=== PATIENT | female | born 1945 | race Caucasian/White ===

== ENCOUNTER → 2019-12-20 09:12 | Outpatient (CLI) | payer MEDICARE, SELFPAY ==
--- NOTE | ~2019-12-20 | XR_ITS ---
EXAMINATION: XR_CERV2-3V_CR DATE: 12/20/2019 09:38 INDICATION: Post cervical fusion. TECHNIQUE: 3 views of cervical spine were obtained. COMPARISON: Cervical spine radiographs 10/12/2017 FINDINGS: There is 11 degrees levoscoliosis of cervicothoracic spine. There are changes of anterior f usion procedure from C4 to C7 with discectomies, interbody devices, and anterior plate and screws. Ve rtebral body heights are normal. Intervertebral disc heights are normal. There is multilevel facet jeanna int osteoarthritis, severe on the right at C3-C4. No central canal stenosis or prevertebral soft tiss ue swelling. IMPRESSION: 1. Stable anterior fusion procedure from C4 to C7. 2. Cervical facet joint osteoarthritis. 3. Cervicothoracic levoscoliosis. Reviewed, dictated and finalized at location A.
== END ==
PROVIDERS: PCP Internal Medicine
DX: Z98.1 Arthrodesis status (principal); M85.89 Other specified disorders of bone density and structure, multiple sites; M41.83 Other forms of scoliosis, cervicothoracic region
CPT/HCPCS: 72040

== ENCOUNTER → 2020-01-20 12:41 | Outpatient (CLI) | payer MEDICARE, SELFPAY ==
--- NOTE | ~2020-01-20 | XR_ITS ---
XR lumbar spine min 4V DATE: 01/20/2020 13:04 INDICATION: Low back pain TECHNIQUE: Standing AP, lateral, flexion and extension lateral views COMPARISON: 12/28/2013 MRI lumbar spine FINDINGS: There is mild dextroscoliosis of the thoracolumbar spine. There is osteopenia. There is postoperative change, including laminectomy and posterior and interbody spinal fusion at L3- L5. There is severe degenerative disc disease including loss of interspace, eburnation and spurring at L1 -2 and L2-3, with retrolisthesis at both levels. There is severe degenerative disc disease at L5-S1. The sacroiliac joints are normal. Right upper quadrant surgical clips. IMPRESSION: Status post posterior and interbody spinal fusion at L3-5, laminectomy Severe degenerative disc disease, retrolisthesis at L1-2, L2-3 Severe degenerative disc disease at L5-S1 Reviewed, dictated and finalized at location A.
--- NOTE | ~2020-01-20 | CT_ITS ---
EXAMINATION: CT lumbar spine wo con EXAM DATE: 01/20/2020 13:04 INDICATION: Lumbar surgery 10 years ago. Lumbar spondylosis. TECHNIQUE: Spiral CT of the lumbar spine was performed without contrast. Axial, coronal and sagittal images were reviewed. The dose-length product (DLP) for this examination was 831.45 mGy-cm. The e xposure was tailored according to patient size (auto mA exposure control), and iterative reconstructi on (ASIR) was used as additional dose reduction technique. Correlation is made to MR lumbar spine fro 12/27/2013. FINDINGS: Posterior and interbody fusions L3-L5. No lucency surrounding the pedicular screws. L3 lami notomies, L4 laminectomies, L5 laminotomies There is 4 mm retrolisthesis L2 on L3 and L3 on L4 with s evere disc disease at these 2 levels. Mild loss of the L1-L3 vertebral body heights. Sclerosis in the se vertebral bodies likely degenerative. No sacral insufficiency fracture. Mild to moderate scattered aortic arteriosclerotic disease. Some sigmoid diverticulosis. Level by level evaluation: T12-L1: Disc does not extend beyond the endplate margin. Facet arthropathy: None. Neural foraminal stenosis: No stenosis. Central canal stenosis: No stenosis. L1-L2: There is a moderate diffuse disc bulge. Facet arthropathy: Mild to moderate. Neural foraminal stenosis: Moderate left, mild to moderate right. Central canal stenosis: Mild to moderate. L2-L3: There is a moderate diffuse disc bulge. Facet arthropathy: Moderate bilateral. Neural foraminal stenosis: Moderate bilateral, right greater than left. Central canal stenosis: Mild to moderate, particularly right lateral recess. L3-L4: This level is fused. Facet arthropathy: Moderate but fused. Neural foraminal stenosis: No stenosis. Central canal stenosis: No stenosis. Posterior decompression L4-L5: This level is fused. Facet arthropathy: Fused. Neural foraminal stenosis: No stenosis. Central canal stenosis: No stenosis. Posterior decompression. L5-S1: There is a mild to moderate diffuse disc bulge. Facet arthropathy: Mild to moderate. Neural foraminal stenosis: Mild to moderate bilateral. Central canal stenosis: No stenosis. Correlating with prior lumbar spine MR, there was advanced disc disease at L2-3 with compression frac tures at that time. This has progressed and there is been interval development of advanced disc disea se at L1-2 as well. IMPRESSION: 1. Advanced disc disease L2-3 and L1-2. 2. Intact fusion, posterior laminotomies and laminectomies L3-5. Reviewed, dictated and finalized at location A.
== END ==
PROVIDERS: Visit Provider Neurological Surgery
DX: M51.36 Other intervertebral disc degeneration, lumbar region (principal); Z98.1 Arthrodesis status; M51.37 Other intervertebral disc degeneration, lumbosacral region
CPT/HCPCS: 72110; 72131

== ENCOUNTER → 2020-07-19 09:32 | Outpatient (CLI) | payer MEDICARE, SELFPAY ==
--- NOTE | ~2020-07-19 | XR_ITS ---
XR hip BI wo pelvis DATE: 07/19/2020 10:18 INDICATION: Hip pain. Osteoarthritis. TECHNIQUE: AP and lateral views of each hip COMPARISON: 03/05/2009 left hip FINDINGS: No fracture or dislocation, avascular necrosis or bone destruction of either hip. Hip joint spaces are symmetric and relatively preserved. The pubic symphysis and sacroiliac joints are intact. Pedicle screws and rods are partially visualized in the lower lumbar area. IMPRESSION: No significant abnormality of the hips Reviewed, dictated and finalized at location A. SEWER
== END ==
PROVIDERS: PCP Internal Medicine; Visit Provider Anesthesiology
DX: M16.0 Bilateral primary osteoarthritis of hip (principal)
CPT/HCPCS: 73521

== ENCOUNTER 2020-08-03 09:55 | Outpatient (CLI) | payer MEDICARE, SELFPAY ==
--- NOTE | 2020-08-06 16:43 | WPDPFTINT ---
PFT Interpretation This is a pulmonary function test with pre and post-bronchodilator spirometry, plethysmography and diffusing capacity. The test was performed and results interpreted in accordance with the 2019 and 2005 ATS/ERS Task Force guidelines respectively using the Derek/Bertha reference equations. Findings: Spirometry: the contour of the inspiratory and expiratory flow tracing are normal. The pre bronchodilator FVC is 2.59 L, 113% predicted. The pre bronchodilator FEV1 is 1.95 L, 123% predicted. The FEV1: FVC ratio is 75%. The post bronchodilator FVC is 2.54 L, representing a 2% decrease. The post bronchodilator FEV1 is 1.97 L, representing a 1% increase. Plethysmography: The total lung capacity is 4.68 L, 117% predicted. The functional residual capacity is 2.08 L, 101% predicted. The residual volume is 2.06 L, 126% predicted. Diffusing capacity: The absolute diffusing capacity is 12.4, 66% predicted. The diffusing capacity corrected for alveolar volume is 3.47, 98% predicted. Impression: The spirometry is normal without evidence of an obstructive abnormality. There is no significant improvement after inhaling a single dose of albuterol. The lung volumes are normal. The diffusing capacity is normal. There are no prior studies for comparison
== END 2020-08-03 09:56 | disposition home or self-care (01) ==
PROVIDERS: PCP Internal Medicine; Visit Provider Internal Medicine
DX: R06.00 Dyspnea, unspecified (principal)
CPT/HCPCS: 94060; 94726; 94729

== ENCOUNTER → 2020-08-08 13:43 | Outpatient (CLI) | payer MEDICARE, SELFPAY ==
--- NOTE | ~2020-08-08 | MM_ITS ---
EXAMINATION: MM screening [facility] BI w wing HISTORY: Screening mammogram TECHNIQUE: Craniocaudal and mediolateral oblique 3-D tomosynthesis images were obtained and synthetic 2-D images were generated. CAD analysis was submitted and interpreted. COMPARISON: 03/14/2019, 01/28/2018, 01/20/2017 BREAST PARENCHYMAL COMPOSITION: There are scattered areas of fibroglandular density. FINDINGS: Scattered benign-appearing calcifications are present. There is no evidence of suspicious m ass, calcification, or architectural distortion to suggest malignancy in either breast. There has bee n no suspicious interval change. IMPRESSION: 1. No mammographic evidence of malignancy. 2. Recommend routine screening mammography in one year. BI-RADS Category 2: Benign finding(s). Reviewed, dictated and finalized at location A. ISITION ADVISOR
== END ==
PROVIDERS: PCP Internal Medicine; Visit Provider Nurse Practitioner Obstetrics & Gynecology
DX: Z12.31 Encounter for screening mammogram for malignant neoplasm of breast (principal)
CPT/HCPCS: 77063; 77067

== ENCOUNTER 2020-12-03 08:26 | Emergency (ER) | payer MEDICARE, SELFPAY ==
--- NOTE | 2020-12-03 08:32 | ED.EYEPROB ---
HPI - Eye Problem General Chief complaint: Eye Problems Stated complaint: Swollen Eye Time Seen by Provider: 12/03/20 08:32 Source: patient and RN notes reviewed Mode of arrival: ambulatory Limitations: no limitations History of Present Illness HPI Narrative: 75 yo female presents to the [facility] with C/O a left upper eye lid that is swollen for 2 days. States that she woke up yesterday with the eye lid mildly swollen red. Denies any trauma to the area. Had some yellowish discharge and tearing. Upper eyelid is swollen. Less help open she cannot see. When the eyelid is held open she states her vision is normal. Denies fevers. No headache. No hyphema. Related Data Home Medications Medication Instructions Recorded Confirmed alprazolam [Xanax] 0.25 mg PO BID 12/03/20 12/03/20 levocetirizine [Xyzal] 5 mg PO DAILY 12/03/20 12/03/20 oxycodone-acetaminophen [Percocet] 1 tablet PO Q4H 12/03/20 12/03/20 pantoprazole [Protonix] 40 mg PO QAM 12/03/20 12/03/20 paroxetine HCl [Paxil] 20 mg PO QAM 12/03/20 12/03/20 simvastatin [Zocor] 20 mg PO DAILY 12/03/20 12/03/20 tizanidine [Zanaflex] 4 mg PO TID 12/03/20 12/03/20 venlafaxine [Effexor XR] 150 mg PO DAILY 12/03/20 12/03/20 vit C,I-Su-kjlwv-lutein-zeaxan 1 tablet PO BID 12/03/20 12/03/20 [PreserVision AREDS-2] Allergies Allergy/AdvReac Type Severity Reaction Status Date / Time celecoxib Allergy Unknown Rash Verified 12/03/20 08:43 NSAIDS (Non-Steroidal Allergy Other Verified 12/03/20 08:43 Anti-Inflamma Review of Systems Review of Systems: All systems reviewed & are unremarkable except as noted in HPI and below Constitutional: Constitutional: Reports no additional constitutional complaints, Denies chills and Denies fever(s) Eyes: Eyes: Reports as per HPI, Denies change in vision and Denies photophobia Comments: Left upper eyelid red and swollen ENT: Reports system reviewed and no additional complaints, except as documented, Denies dysphagia, Denies dizziness, Denies nasal congestion and Denies sore throat Cardiovascular: Cardiovascular: Reports no additional cardiovascular complaints and Denies chest pain Respiratory: Respiratory: Reports no additional respiratory complaints, Denies cough and Denies dyspnea Gastrointestinal: Gastrointestinal: Reports no additional gastrointestinal complaints, Denies abdominal pain, Denies nausea and Denies vomiting Musculoskeletal: Musculoskeletal: Reports no additional musculoskeletal complaints Integumentary/Breasts: Skin/Breast: Reports system reviewed and no additional complaints, except as docu Neurologic: Reports system reviewed and no additional complaints, except as documented, Denies headache(s), Denies focal weakness and Denies numbness Psychiatric: Psychiatric: Reports no additional psychiatric complaints Allergic/Immunologic: Allergic/Immunologic: Reports no additional allergic/immunologic complaints, Denies lip swelling, Denies throat swelling and Denies tongue swelling PMFSH Past Medical History Medical History (Updated 12/03/20 @ 09:12 by Suzette Chirinos) Arthritis Colitis High cholesterol IBS (irritable bowel syndrome) Tarsal tunnel syndrome Surgical History Surgical History (Updated 12/03/20 @ 09:12 by Suzette Chirinos) H/O: hysterectomy History of knee replacement procedure of right knee History of left knee replacement History of tonsillectomy Hx of cholecystectomy Family History Family History Mother Family history of suicide, Onset Age: 44 Patient's mother is Depression Father Acute myocardial infarction, Onset Age: 71 Patient's father is Family history of heart disease in male family member before age 55 Sibling Carcinoma of colon Social History Social History Smoking packs per day: 0.5 Smoking cigarettes per day: 10.0 Years smoked: 65 Smoking pack-years: 32.
[2020-12-03 08:37] VITALS: BP 176/94; PULSE 75; RESP 16; TEMP 36.2; O2SAT 99
== END 2020-12-03 08:51 | disposition home or self-care (01) ==
PROVIDERS: Emergency Provider Nurse Practitioner; PCP Internal Medicine
DX: H00.014 Hordeolum externum left upper eyelid (principal); H10.32 Unspecified acute conjunctivitis, left eye; F17.210 Nicotine dependence, cigarettes, uncomplicated; M19.90 Unspecified osteoarthritis, unspecified site; E78.00 Pure hypercholesterolemia, unspecified; Z96.653 Presence of artificial knee joint, bilateral
CPT/HCPCS: 99213; G0463

== ENCOUNTER 2021-03-20 11:54 | Emergency (ER) | payer MEDICARE, SELFPAY ==
[2021-03-20 12:11] VITALS: BP 152/95; PULSE 76; RESP 16; TEMP 36.3; O2SAT 99
--- NOTE | 2021-03-20 12:35 | ED.ANIMALBIT ---
HPI - Animal Bite General Chief Complaint: Animal Bite Stated Complaint: cat bite Source: patient and RN notes reviewed Limitations: no limitations History of Present Illness HPI narrative: The patient, on several medications including for mood, presents with cat bite. Patient states she sustained a cat bite to her proximal hand distal / wrist earlier today, cleaned with peroxide. She complains of mild pain and developing redness to the puncture wounds at the snuffbox and proximal, index extensor metacarpal. Symptoms are mild, better with elevation; her last tetanus was about 7 years ago [will be updated]. No fever, discharge, streaking at this early time Related Data Home Medications Medication Instructions Recorded Confirmed levocetirizine [Xyzal] 5 mg PO DAILY 12/03/20 12/03/20 oxycodone-acetaminophen [Percocet] 1 tablet PO Q4H 12/03/20 12/03/20 pantoprazole [Protonix] 40 mg PO QAM 12/03/20 12/03/20 paroxetine HCl [Paxil] 20 mg PO QAM 12/03/20 12/03/20 tizanidine [Zanaflex] 4 mg PO TID 12/03/20 12/03/20 vit C,X-Ac-elxjv-lutein-zeaxan 1 tablet PO BID 12/03/20 12/03/20 [PreserVision AREDS-2] Allergies Allergy/AdvReac Type Severity Reaction Status Date / Time celecoxib Allergy Unknown Rash Verified 12/03/20 08:43 NSAIDS (Non-Steroidal Allergy Other Verified 12/03/20 08:43 Anti-Inflamma Review of Systems Review of Systems: The patient has been informed that they may have pre-hypertension or Hypertension based on a BP reading in the department. I recommend that the patient call the primary care provider listed on their discharge instructions or a physician of their choice this week to arrange follow up for further evaluation of possible pre-hypertension or Hypertension General/Constitutional: No weight loss,fever Eyes: N0: Redness,discharge Ears/Nose/Throat: No: Epistaxis,ear discharge Respiratory: Denies: Hemoptysis Gastrointestinal: No Vomiting, Bleeding-rectal Skin: No Lumps, REPORTS developing eruption Neurologic: No Focal Weakness,Sz Hematologic: Denies: Petechiae/Purpura Psychiatric: No: Suicida ideationl All Other Systems: Reviewed and Negative [facility] Past Medical History Medical History (Updated 03/20/21 @ 13:25 by Bijan Berrios MD) Arthritis Colitis High cholesterol IBS (irritable bowel syndrome) Tarsal tunnel syndrome Surgical History Surgical History (Updated 12/03/20 @ 09:12 by Suzette Chirinos) H/O: hysterectomy History of knee replacement procedure of right knee History of left knee replacement History of tonsillectomy Hx of cholecystectomy Family History Family History Mother Family history of suicide, Onset Age: 44 Patient's mother is Depression Father Acute myocardial infarction, Onset Age: 71 Patient's father is Family history of heart disease in male family member before age 55 Sibling Carcinoma of colon Social History Social History Smoking packs per day: 0.5 Smoking cigarettes per day: 10.0 Years smoked: 65 Smoking pack-years: 32.50 Smoking status: Current every day smoker Tobacco type: cigarettes Second hand tobacco smoke exposure: No Alcohol intake: never Substance use: never Gender identity (if verbalized by the patient): Female Comments At time of signature, agree with nursing past medical, surgical, social and family history. There is no relevant family history pertinent to the presenting complaint Exam Narrative: General Appearance: Well appearing, Conjunctiva clear Ears: External ear normal, Auditory canal normal Nose: Normal nose, Nares clear Mouth/Throat: Normal appearing, Normal lips,: Supple Respiratory: Airway patent, No respiratory distress MS wrist: Nl strength (mostly intact, limited flexion/extension by pain), Tenderness (distal radius/snuffbox, with mild decreased ROM), mild swelling
[2021-03-20] MEDS: TETANUS,DIPHTHERIA,AC PERTUSSIS ADULT (0.5 ML) BOOSTRIX IM (12:54)
== END 2021-03-20 13:00 | disposition home or self-care (01) ==
PROVIDERS: Emergency Provider Emergency Medicine; PCP Internal Medicine
DX: M25.532 Pain in left wrist (principal); S61.452A Open bite of left hand, initial encounter; W55.01XA Bitten by cat, initial encounter; Z23 Encounter for immunization; F17.210 Nicotine dependence, cigarettes, uncomplicated; M19.90 Unspecified osteoarthritis, unspecified site; E78.00 Pure hypercholesterolemia, unspecified; Z96.653 Presence of artificial knee joint, bilateral
CPT/HCPCS: 90471; 90715; 99213; G0463

== ENCOUNTER → 2021-08-29 09:59 | Outpatient (CLI) | payer MEDICARE, SELFPAY ==
--- NOTE | ~2021-08-29 | XR_ITS ---
EXAMINATION: XR shoulder LT min 2V DATE: 08/29/2021 10:14 INDICATION: Left shoulder pain. TECHNIQUE: 4 views of left shoulder were obtained. COMPARISON: None. FINDINGS: Bone alignment is normal. No fracture. There is severe osteoarthritis of glenohumeral joint and mild osteoarthritis of the acromioclavicular joint. A calcified left lung nodule and calcified l eft hilar lymph nodes are consistent with old granulomatous disease. There are changes of anterior fu haven procedure in cervical spine. IMPRESSION: 1. Severe osteoarthritis of left glenohumeral joint. Reviewed, dictated and finalized at location A.
== END ==
PROVIDERS: Visit Provider Anesthesiology
DX: M19.012 Primary osteoarthritis, left shoulder (principal)
CPT/HCPCS: 73030

== ENCOUNTER → 2021-09-12 12:03 | Outpatient (CLI) | payer MEDICARE, SELFPAY ==
--- NOTE | ~2021-09-12 | MR_ITS ---
EXAMINATION: MR shoulder LT wo con DATE: 09/12/2021 12:37 INDICATION: Left shoulder pain TECHNIQUE: Magnetic resonance imaging (MRI) of the left shoulder was performed without intravenous co ntrast. Sequences included axial PD-weighted FS FSE, coronal oblique PD-weighted FS FSE, coronal obli que T2-weighted FS FSE, sagittal PD-weighted FS FSE, and sagittal T1-weighted SE. COMPARISON: None. FINDINGS: Coracoacromial arch: The acromion undersurface is curved in morphology (type II). The coracoacromial ligament is normal. M ild acromioclavicular osteoarthritis. Rotator cuff: Moderate supraspinatus and mild infraspinatus tendinopathy without discrete tear. Mild subscapularis tendinopathy with small longitudinal split tear extending 1.5 cm medially from the lesser tuberosity footplate between the cephalad and middle thirds of the tendon. The teres minor tendon is normal. Nor mal rotator cuff muscle bulk and signal. Biceps tendon, glenoid labrum and glenohumeral cartilage: Mild tendinopathy and linear longitudinal split tear extending along the intra-articular long head bi ceps tendon. Diffuse degenerative tearing of the glenoid labrum with thickened macerated appearance p osterior superiorly. There is extensive cartilage loss which appears carmona near full-thickness along the posterior and inferior aspect of the glenoid with subarticular cystlike changes along the superi or and anterior glenoid and more extensive subarticular edema-like marrow signal change. Additional e xtensive partial-thickness cartilage loss involving greater than 50% the cartilage thickness along th e humeral head, potentially also full/near full-thickness along portions of the medial and superomedi al aspect of the humeral head where there is additional subarticular edema-like signal change. Margin al ossified to most prominent along the inferomedial aspect of the humeral head with tiny marginal os teophytes along the glenoid. Fluid: Moderate-sized glenohumeral joint effusion with synovitis at the posterior, axillary and subcoracoid recesses. There is proportional increased fluid extending along the long head biceps tendon sheath. N o loose osteochondral bodies. Mild increased fluid signal in the subacromial/subdeltoid bursa consist ent with mild bursitis. Bones: Bone alignment is normal. No fracture or pathologic marrow replacing process. IMPRESSION: 1. Severe glenohumeral osteoarthritis with diffuse degenerative tearing of the glenoid labrum and lik ese reactive moderate sized glenohumeral joint effusion. 2. Moderate supraspinatus and mild infraspinatus and subscapularis tendinopathy with small longitudin al split tear along the distal subscapularis tendon. Line 3. Mild tendinopathy and longitudinal split tear along the intra-articular long head biceps tendon. Reviewed, dictated and finalized at location A. IMPRESSION: 1. Severe glenohumeral osteoarthritis with diffuse degenerative tearing of the glenoid labrum and likely reactive moderate sized glenohumeral joint effusion. 2. Moderate supraspinatus and mild infraspinatus and subscapularis tendinopathy with small longitudinal split tear along the distal subscapularis tendon. Line 3. Mild tendinopathy and longitudinal split tear along the intra-articular long head biceps tendon.
== END ==
PROVIDERS: PCP Internal Medicine; Visit Provider Anesthesiology
DX: M19.012 Primary osteoarthritis, left shoulder (principal); S46.812A Strain of other muscles, fascia and tendons at shoulder and upper arm level, left arm, initial encounter; S46.122A Laceration of muscle, fascia and tendon of long head of biceps, left arm, initial encounter
CPT/HCPCS: 73221

== ENCOUNTER → 2021-10-21 10:29 | Outpatient (CLI) | payer MEDICARE, SELFPAY ==
--- NOTE | ~2021-10-21 | MM_ITS ---
EXAMINATION: MM screening [facility] w [facility] HISTORY: Screening TECHNIQUE: Craniocaudal and mediolateral oblique 3-D tomosynthesis images were obtained and synthetic 2-D images were generated. CAD analysis was submitted and interpreted. COMPARISON: Comparison to multiple prior studies sequentially, with oldest reviewed study dated 10/22. BREAST PARENCHYMAL COMPOSITION: The breasts are heterogenously dense, which may obscure small masses FINDINGS: There is no evidence of suspicious mass, calcification, or architectural distortion to sugg est malignancy in either breast. There has been no suspicious interval change. IMPRESSION: 1. No mammographic evidence of malignancy. 2. Recommend routine screening mammography in one year. BI-RADS Category 1: Negative Reviewed, dictated and finalized at location A.
== END ==
PROVIDERS: PCP Internal Medicine; Visit Provider Internal Medicine
DX: Z12.31 Encounter for screening mammogram for malignant neoplasm of breast (principal)
CPT/HCPCS: 77063; 77067

== ENCOUNTER 2021-10-23 15:23 | Outpatient (CLI) | payer MEDICARE, SELFPAY | END 2021-10-23 15:24 | disposition home or self-care (01) | LOC: ANHLAB 15:25 | PROVIDERS: PCP Internal Medicine; Visit Provider Physician Assistant | DX: R30.0 Dysuria (principal) | CPT/HCPCS: 87086 ==

== ENCOUNTER 2021-10-24 16:34 | Outpatient (CLI) | payer MEDICARE, SELFPAY ==
[2021-10-24 17:22] LABS: Appearance Urine Clear (Clear); Bilirubin Urine Negative (Negative); Color Urine Yellow (Yellow); Glucose Urine UA Negative (Negative); Ketones Urine Negative (Negative); Leukocyte Esterase Ur Negative LEU/UL (NEGATIVE); Nitrate Urine Negative (Negative); Protein Urine Negative (Negative); Specific Grav Ur 1.025 (1.001-1.035); Urobilinogen Urine 0.2 mg/dL (<2.0); pH Urine 5.5 (5.0-9.0)
[2021-10-24 17:27] LABS: Add Urine Microscopic? YES; Blood Urine Trace-Intact (Negative)
[2021-10-24 17:35] LABS: Mucus Urine Rare /lpf; RBC Urine 0-2 /hpf (0-2); Squamous Epithelial Cell Urine Rare /hpf (Few); WBC Urine 0-3 /hpf (0-3)
== END 2021-10-24 16:35 | disposition home or self-care (01) ==
LOC: ANHLAB 16:36
PROVIDERS: PCP Internal Medicine; Visit Provider Physician Assistant
DX: R30.0 Dysuria (principal)
CPT/HCPCS: 81001

== ENCOUNTER → 2021-11-05 10:39 | Outpatient (CLI) | payer MEDICARE, SELFPAY ==
--- NOTE | ~2021-11-05 | XR_ITS ---
EXAM: XR thoracolumbar DATE: 11/05/2021 11:01 HISTORY: Back Pain . COMPARISON: 01/20/2020. FINDINGS: Electronic stimulator, with leads terminating over the mid thoracic spine. Lumbar fusion h ardware, stable. Left lower lung granuloma. Exaggerated lumbar lordosis. Stable 7 mm retrolisthesis o f L1 on L2 and 8 mm retrolisthesis of L2 on L3. Severe degenerative change at L1-2, L2-3, and L5-S1. Multilevel mild-moderate degenerative disc disease in the thoracic spine. IMPRESSION: No acute osseous finding in the thoracolumbar spine. Chronic changes described above. Reviewed, dictated and finalized at location K. IMPRESSION: No acute osseous finding in the thoracolumbar spine. Chronic change s described above.
== END ==
PROVIDERS: PCP Internal Medicine; Visit Provider Neurological Surgery
DX: M54.50 Low back pain, unspecified (principal)
CPT/HCPCS: 72080

== ENCOUNTER 2021-12-13 13:31 | Outpatient (CLI) | payer MEDICARE, SELFPAY ==
--- NOTE | ~2021-12-13 | CT_ITS ---
EXAMINATION: CT lung screening DATE: 12/13/2021 13:52 INDICATION: Personal history of nicotine dependence, current smoker with 80 pack year history TECHNIQUE: Computed tomography (CT) of the chest was performed without intravenous contrast. The dose -length product (DLP) was 84.29 mGy-cm. Automated exposure control and iterative reconstruction techn Quellanue were employed. COMPARISON: None FINDINGS: There is mild emphysema. No suspicious pulmonary nodules are identified. Calcified pulmonar y nodules and calcified left hilar lymph nodes are consistent with old granulomatous disease. Three a cute opacities. No pleural effusion or pneumothorax. No pathologically enlarged thoracic lymph nodes are identified. The heart size is normal. Calcified coronary artery atherosclerosis is noted. The gal lbladder is surgically absent. There is a 2 cm cyst in the upper pole of the left kidney. There is se lizz thoracic and lumbar spondylosis. There are partially imaged changes of anterior fusion in the lo wer cervical spine. There are stimulator leads are present in the central spinal canal over the midt horacic spine. IMPRESSION: 1. Lung-RADS category 1: Negative. Continue annual screening with noncontrast low-dose chest CT in 12 months. Reviewed, dictated and finalized at location F. IMPRESSION: 1. Lung-RADS category 1: Negative. Continue annual screening with noncontrast l ow-dose chest CT in 12 months.
== END 2021-12-13 13:32 | disposition home or self-care (01) ==
PROVIDERS: PCP Internal Medicine; Visit Provider Internal Medicine
DX: Z12.2 Encounter for screening for malignant neoplasm of respiratory organs (principal); Z87.891 Personal history of nicotine dependence
CPT/HCPCS: 71271

== ENCOUNTER → 2022-02-14 14:00 | Outpatient (CLI) | payer MEDICARE, SELFPAY ==
--- NOTE | ~2022-02-14 | XR_ITS ---
XR hip LT min 2V DATE: 02/14/2022 14:16 INDICATION: Left hip primary osteoarthritis. Left hip pain. TECHNIQUE: AP and lateral views COMPARISON: July 19, 2020 bilateral hips FINDINGS: No fracture or dislocation, avascular necrosis or bone destruction of the left hip. Mild le ft hip osteoarthritis. Posterior and interbody surgical spinal fusion is noted in the lower lumbar spine. Generated by some overlying the left lower abdomen. IMPRESSION: Mild left hip osteoarthritis Reviewed, dictated and finalized at location B.
== END ==
PROVIDERS: PCP Internal Medicine; Visit Provider Anesthesiology
DX: M16.12 Unilateral primary osteoarthritis, left hip (principal)
CPT/HCPCS: 73502

== ENCOUNTER → 2022-03-18 10:28 | Outpatient (CLI) | payer MEDICARE, SELFPAY ==
--- NOTE | ~2022-03-18 | CT_ITS ---
EXAMINATION: CT cervical spine wo con DATE: 03/18/2022 10:45 INDICATION: Cervical radiculopathy. TECHNIQUE: Computed tomography (CT) of the cervical spine was performed without intravenous contrast. Automated exposure control and iterative reconstruction technique were employed. The dose-length pro duct was 144.24 mGy-cm. COMPARISON: None FINDINGS: There is mild scarring at the lung apices. There is 9 degrees dextrocurvature of cervical s pine. There are changes of anterior fusion procedure from C4 C7 with interbody devices and anterior p late and screws. There is no bridging bone at C6-C7. There is lucency adjacent to the C7 screws. Ther e is 2 mm anterolisthesis of C7 on T1. Vertebral body heights are normal. There is mildly decreased d isc height at C3-C4 and C7-T1. The following disc levels are specifically discussed: C2-C3: There is no uncovertebral joint osteoarthritis. There is severe bilateral facet joint osteoart hritis. There is no neural foraminal stenosis. There is no central canal stenosis. C3-C4: There is severe right and mild left uncovertebral joint osteoarthritis. There is severe bilate ral facet joint osteoarthritis. There is mild right neural foraminal stenosis. There is mild central canal stenosis. C4-C5: There is mild bilateral uncovertebral joint hypertrophy. There is ankylosis of the facet joint s with mild hypertrophy. There is mild bilateral neural foraminal stenosis. There is no central canal stenosis. C5-C6: There is mild bilateral uncovertebral joint hypertrophy. There is severe right and moderate le ft facet joint osteoarthritis. There is mild bilateral neural foraminal stenosis. There is no central canal stenosis. C6-C7: There is mild bilateral uncovertebral joint hypertrophy. There is moderate left facet joint os teoarthritis. There is mild bilateral neural foraminal stenosis. There is mild central canal stenosis . C7-T1: There is no uncovertebral joint osteoarthritis. There is severe bilateral facet joint osteoart hritis. There is mild bilateral neural foraminal stenosis. There is no central canal stenosis. IMPRESSION: 1. Anterior fusion procedure from C4 to C7 without bridging bone at C6-C7 and with lucency around the C7 screws, consistent with loosening. 2. Mild cervical spondylosis. Reviewed, dictated and finalized at location A. IMPRESSION: 1. Anterior fusion procedure from C4 to C7 without bridging bone at C6-C7 and w ith lucency around the C7 screws, consistent with loosening. 2. Mild cervical spondylosis.
== END ==
PROVIDERS: PCP Internal Medicine; Visit Provider Anesthesiology
DX: M47.22 Other spondylosis with radiculopathy, cervical region (principal); Z98.1 Arthrodesis status
CPT/HCPCS: 72125

== ENCOUNTER 2022-06-18 08:26 | Outpatient (CLI) | payer MEDICARE, SELFPAY ==
--- NOTE | 2022-06-18 08:56 | ECHO_ITS ---
Patient Info Name: Faye Tariq Age: 76 years : 1945 Gender: Female Ht: 60 in Wt: 145 lbs BSA: 1.69 m2 HR: 88 bpm BP: 166 / 104 mmHg Technical Quality: Good Exam Date: 06/18/2022 9:13 AM Exam Location: [facility] Patient Status: Outpatient Admit Date: 06/18/2022 Staff Ordering Physician: Duc Dubois DO Certified Personal Chef: Kailey Mojica RDCS Attending Provider: Duc Dubois DO Referring Physician: Sherly BLACKWOOD; Exam Type: CA echo doppler color flow Study Info Indications R00.2 - Palpitations Complete two-dimensional, color flow and Doppler transthoracic echocardiogram is performed. Summary 1. Complete two-dimensional, color flow and Doppler transthoracic echocardiogram is performed. 2. Left ventricular chamber dimension is normal. 3. Left ventricular systolic function is normal, estimated at 55-60%. 4. The left ventricular diastolic function is grade I diastolic dysfunction. 5. E/e' 12 is mildly elevated. 6. Left atrial chamber dimension is moderately enlarged. 7. There is mild aortic valve sclerosis. 8. There is trace aortic valve regurgitation. 9. There is mild mitral valve regurgitation. 10. There is mild to moderate tricuspid valve regurgitation. 11. No pulmonary hypertension, estimated pulmonary arterial systolic pressure is 30 mmHg. 12. There is trace pulmonic regurgitation. Left Ventricle E/e' 12 is mildly elevated. Left ventricular chamber dimension is normal. Left ventricular systolic function is normal, estimated at 55-60%. The left ventricular diastolic function is grade I diastolic dysfunction. Right Ventricle Right ventricular chamber dimension is normal. Right ventricular systolic function is normal. Left Atria Left atrial chamber dimension is moderately enlarged. Right Atria Right atrial chamber dimension is normal. Aortic Valve The aortic valve is trileaflet. There is mild aortic valve sclerosis. There is no aortic valve stenosis. There is trace aortic valve regurgitation. Pulmonic Valve There is trace pulmonic regurgitation. Mitral Valve There is no mitral valve stenosis. There is mild mitral valve regurgitation. Tricuspid Valve There is mild to moderate tricuspid valve regurgitation. No pulmonary hypertension, estimated pulmonary arterial systolic pressure is 30 mmHg. Pericardium/Pleural There is no pericardial effusion. Inferior Vena Cava Normal inferior vena cava with >50% collapse upon inspiration consistent with normal right atrial pressure, 5 mmHg. Aorta The aortic root size at the sinus of Valsalva is normal. Left Ventricular Outflow Tract Name Value Normal LVOT 2D LVOT Diameter 2.0 cm LVOT Doppler LVOT Peak Gradient 3 mmHg LVOT Mean Gradient 2 mmHg LVOT VTI 19 cm LVOT VTI/AV VTI Ratio 0.8 LVOT Stroke Volume 61 ml LVOT CO 11.9 l/min LVOT CI 7.0 l/min/m2 Pulmonic Valve
--- NOTE | 2022-06-23 16:51 | WPDHOLTEREM ---
Holter/Event Monitor Holter/Event Monitor Date of procedure: 06/18/22 Holter/Event Procedure: 48 Hr Holter Monitor Indications: Palpitations Conclusion: 1. 48 hour holter monitor on 06/18/22. 2. Predominant rhythm is sinus rhythm. HR range 55-154 bpm; average HR 74 bpm. HR at 154 bpm was at 10:09. 3. There are 409 premature supraventricular complexes and 17 supraventricular couplets. There are 4 episodes of atrial tachycardia, fastest at 185 bpm and longest lasted 18 beats. 4. There are 9,865 premature ventricular complexes, 167 ventricular couplets, 1 ventricular triplet, 509 ventricular bigeminy and 359 ventricualr trigeminy. No ventricular tachycardia. 5. No sinoatrial or atrioventricular blocks. No significant pauses greater than 2 seconds. 6. Patient reports symptoms of palpitations and fast heart rate which demonstrate sinus rhythm, HR range 82-83 bpm and 1 PVC.
== END 2022-06-18 08:27 | disposition home or self-care (01) ==
PROVIDERS: PCP Internal Medicine; Visit Provider Internal Medicine
DX: R00.2 Palpitations (principal); I36.1 Nonrheumatic tricuspid (valve) insufficiency; I35.1 Nonrheumatic aortic (valve) insufficiency; I34.0 Nonrheumatic mitral (valve) insufficiency
CPT/HCPCS: 93225; 93226; 93306

== ENCOUNTER 2023-01-01 13:26 | Outpatient (CLI) | payer MEDICARE, SELFPAY ==
--- NOTE | ~2023-01-01 | CT_ITS ---
EXAMINATION:CT lung screening DATE: 01/01/2023 13:50 INDICATION: Nicotine dependence. Current smoker with 80 pack year history. TECHNIQUE: Computed tomography (CT) of the chest was performed without intravenous contrast. Automate d exposure control and iterative reconstruction technique were employed. The dose-length product (DLP ) was 139.52 mGy-cm. COMPARISON: Chest CT 12/13/2021 FINDINGS: The lungs demonstrate minimal atelectasis. Calcified bilateral lung nodules and calcified l eft hilar lymph nodes are consistent with old granulomatous disease. No pleural effusion. There is ec nicholas of ascending aorta measuring 4.4 cm. The heart size is normal. There are coronary artery calcif ications. No pericardial effusion. There are changes of cholecystectomy. There is a 2.1 cm cyst in ri ght kidney. There are changes of anterior fusion procedure in cervical spine. There is severe thoraci c and lumbar spondylosis. Epidural electrodes are noted in thoracic spine. IMPRESSION: 1. Lung-RADS category 1: Negative. Continue annual screening with noncontrast low-dose chest CT in 12 months. Reviewed, dictated and finalized at location A. IMPRESSION: 1. Lung-RADS category 1: Negative. Continue annual screening with noncontrast l ow-dose chest CT in 12 months.
== END 2023-01-01 13:27 | disposition home or self-care (01) ==
PROVIDERS: PCP Internal Medicine; Visit Provider Internal Medicine
DX: Z12.2 Encounter for screening for malignant neoplasm of respiratory organs (principal); F17.210 Nicotine dependence, cigarettes, uncomplicated
CPT/HCPCS: 71271

== ENCOUNTER → 2023-02-10 12:18 | Outpatient (CLI) | payer MEDICARE, SELFPAY ==
--- NOTE | ~2023-02-10 | XR_ITS ---
EXAM: XR hip BI wo pelvis DATE: 02/10/2023 12:38 HISTORY: Bilateral primary osteoarthritis of hip . COMPARISON: X-ray left hip 02/14/2022, x-ray hip bilateral 07/19/2020. FINDINGS: Decreased mineralization. Partially visualized lumbar fusion hardware and stimulator/medic ation pump. No acute fracture or dislocation. Mild bilateral hip osteoarthritis. Bilateral greater tr ochanter enthesopathy, worse on the left. Mild degenerative change in the bilateral SI joints and pub ic symphysis. IMPRESSION: Mild bilateral hip osteoarthritis. Reviewed, dictated and finalized at location K.
== END ==
PROVIDERS: PCP Internal Medicine; Visit Provider Anesthesiology
DX: M16.0 Bilateral primary osteoarthritis of hip (principal)
CPT/HCPCS: 73521

== ENCOUNTER 2024-01-07 09:57 | Outpatient (CLI) | payer MEDICARE, SELFPAY ==
--- NOTE | ~2024-01-07 | CT_ITS ---
EXAMINATION: CT lung screening DATE: 01/07/2024 10:13 INDICATION: Nicotine dependence TECHNIQUE: Computed tomography (CT) of the chest was performed without intravenous contrast. The dose -length product was 166.91 mGy-cm. Automated exposure control and iterative reconstruction technique were employed. COMPARISON: CT dated 01/01/2023 FINDINGS: Large calcified granuloma left lower lobe. No significant pleural or pericardial effusion. There is atherosclerosis of the aorta. There is coronary atherosclerosis. There is a right renal cyst partially visualized. There are a few additional calcified nodules in the lungs. No suspicious nonca lcified pulmonary nodules are seen. There is sclerosis of multiple lower thoracic and upper lumbar ve rtebra, suspicious for metastatic disease. There is sclerosis medially and of the right clavicle as w ell as the sternum. Severe degenerative changes of the shoulders. IMPRESSION: 1. Sclerotic vertebra in the lower thoracic and upper lumbar spine as well as the right clavicle and sternum at the sternoclavicular joint. Findings suspicious for metastatic disease. 2: Lung-RADS category 1S: Negative. Continue annual screening with noncontrast low-dose chest CT in 1 2 months. Reviewed, dictated and finalized at location B. IMPRESSION: 1. Sclerotic vertebra in the lower thoracic and upper lumbar spine as well as t he right clavicle and sternum at the sternoclavicular joint. Findings suspiciou s for metastatic disease. 2: Lung-RADS category 1S: Negative. Continue annual screening with noncontrast low-dose chest CT in 12 months.
== END 2024-01-07 09:58 ==
LOC: MICIMG 09:59
PROVIDERS: PCP Internal Medicine; Visit Provider Internal Medicine
DX: Z12.2 Encounter for screening for malignant neoplasm of respiratory organs (principal); F17.210 Nicotine dependence, cigarettes, uncomplicated
CPT/HCPCS: 71271

== ENCOUNTER 2024-09-24 11:22 | Emergency (ER) | payer MEDICARE, SELFPAY ==
--- NOTE | 2024-09-24 11:22 | ED_ITS ---
HPI - Eye Problem General Chief complaint: Eye Problems Stated complaint: Left Eye Irritation Time Seen by Provider: 09/24/24 11:22 Source: patient Mode of arrival: ambulatory Limitations: no limitations History of Present Illness HPI Narrative: Faye is a 78-year-old female patient presenting to the clinic today with complaints of left eye irritation times 2-3 days. States she is having itching, discomfort, and yellow drainage. She reports no known fever, chills, body aches. Denies any URI symptoms. Denies any known exposure to anyone with pinkeye. Related Data Home Medications ?Medication ?Instructions ?Recorded ?Confirmed ?Last Taken ?Type oxycodone-acetaminophen 10 mg-325 1 tablet PO Q4H 12/03/20 09/24/24 Unknown History mg tablet (Percocet) vit C 250 mg-vit E 90 mg-zinc 40 1 tablet PO BID 12/03/20 01/29/24 Unknown History mg-copper 1 [id number] capsule (PreserVision AREDS-2) oxycodone 15 mg tablet mg 09/24/24 Unknown History Allergies Allergy/AdvReac Type Severity Reaction Status Date / Time celecoxib Allergy Unknown Rash Verified 09/24/24 11:25 NSAIDS (Non-Steroidal Allergy Other Verified 09/24/24 11:25 Anti-Inflamma Review of Systems Review of Systems: Pertinent positives per HPI. Patient denies any fever, chills, rash, headache, visual changes, dizziness, cough, shortness of breath, chest pain, palpitations, nausea, vomiting, diarrhea, constipation, abdominal pain, or any urinary issues. [facility] Past Medical History Medical History Spinal cord stimulator status Tarsal tunnel syndrome High cholesterol Arthritis Colitis IBS (irritable bowel syndrome) Surgical History Surgical History History of left knee replacement History of knee replacement procedure of right knee Hx of cholecystectomy H/O: hysterectomy History of tonsillectomy Family History Family History Mother Patient's mother is Suicide Depression Father Acute myocardial infarction, Onset Age: 71 Patient's father is Family history of heart disease in male family member before age 55 Sibling Carcinoma of colon Social History Social History Smoking packs per day: 0.5 Smoking cigarettes per day: 10.0 Years smoked: 65 Smoking pack-years: 32.50 Smoking status: Current every day smoker (down to 7 cigarettes/day(down from 10)) Tobacco type: cigarettes Second hand tobacco smoke exposure: No Alcohol intake: never Substance use: never Lack of Transportation: No Lack of Food: Never True Current Housing: I Have Housing Concerned About Future Housing: No Difficulty Paying Gas/Electric Bills: No Difficulty Paying for Meds: No Currently Unemployed: No Education: High School Diploma/GED Difficulty w/ Childcare or Family Care: No Gender identity (if verbalized by the patient): Female Comments At the time of my signature, I reviewed and agree with the nursing past medical, surgical, social, and family history. There is no relevant family history p ertinent to the patient complaint. Exam Narrative: General: Well-developed, well nourished, in no apparent distress Head: Normocephalic, atraumatic Eyes: Pupils equally round and reactive to light bilaterally, EOM intact, right sclera and conjunctive clear, no discharge, lids normal, left sclera and conj unctiva injected with yellow mucopurulent discharge, lids normal Ears: TMs intact and clear, ear canals clear, no drainage, grossly hearing normal. Nose: Nares patent, no discharge, no inflammation, no sinus tenderness. Mouth: Oral pharynx without lesions or masses, good dentition, MMM. Neck: Supple, trachea midline, no enlargement of anterior or posterior cervical nodes, no thyroid masses or goiter palpable. Cardio: Regular rate and rhythm, s1 and s2 normal, no murmur appreciated. Resp: Clear to auscultation bilaterally, no rhonchi, rales, wheezing or rubs Course Course Emergency Course: Portions of this record may have been created with voice recognition software. Level of Care: Express Care Visit Vital Signs Vital signs: Vital Signs Temperature 36.2 C L 09/24/24 11:30 Pulse Rate 97 09/24/24 11:30 Respiratory Rate 19 09/24/24 11:30 Blood Pressure 134/86 09/24/24 11:30 Pulse Oximetry 100 09/24/24 11:30 Oxygen Delivery Room Air 09/24/24 11:30 Temperature 36.2 C L 09/24/24 11:30 Pulse Rate 97 09/24/24 11:30 Respiratory Rate 19 09/24/24 11:30 Blood Pressure 134/86 09/24/24 11:30 Pulse Oximetry 100 09/24/24 11:30 Oxygen Delivery Room Air 09/24/24 11:30 Vital signs reviewed Procedures Other Procedure Procedure 1: Other Procedure: Two drops of topical tetracaine anesthetic was instilled with good anesthesia. Fluorescein stain of the left eye was performed without uptake of dye. No epithelial defect was noted. NO FB, ulcer or dendritic lesions. Upper lid was everted and no FB or lesions were noted. NO Viry sign. Normal saline irr igation eye solution was performed and the patient tolerated the procedure well, no adverse reaction or complications. MDM - Eye Problem MDM Narrative Medical decision making narrative: At the time of visit patient is resting comfortably on the exam table. Patient appears to be nontoxic. Procedures: Wood's lamp exam was performed and no sign of corneal abrasion, foreign body, or Viry sign. Plan: I suspect patient has left conjunctivitis. Prescription for tobramycin eyedrops was sent to the pharmacy. Supportive measures were discussed with the patient and they voiced understanding discharge instructions and agrees to treatment plan. Return precautions reviewed Differential Diagnosis Differential diagnosis: Likely corneal abrasion, conjunctivitis, acute iritis, hyphema, periorbital cellulitis, subconjunctival hemorrhage, glaucoma, corneal ulcer and ruptured globe Discharge Plan Discharge Clinical Impression: Conjunctivitis Qualifiers: Conjunctivitis type: acute Acute conjunctivitis type: unspecified Laterality: left Qualified Code(s): H10.32 - Unspecified acute conjunctivitis, left eye Patient Disposition: Home Condition: Stable Instructions: Antibiotic Form, Conjunctivitis (ED) Additional Instructions: Conjunctivitis is considered contagious for 24 hours while on the antibiotic. Practice good hand washing techniques Avoid touching eyes Instill eyedrops as prescribed May use warm moist washcloth to help remove eye discharge If eyes are matted shut-do not pry eyes open-use a warm moist cloth to loosen matting and wipe matter away from eye May take Tylenol/Motrin as needed for pain or fever May take Benadryl as needed for itching Follow-up with your PCP in 3-5 days if symptoms persist or sooner if they worsen Go to the emergency room if you develop any fever that is not controlled by Tylenol or Motrin, loss of vision, eye pain, increase eye swelling,visual changes, headache, confusion, lethargy, weakness, chest pain, or shortness of breath. Patient Language: Yi Prescriptions: New tobramycin 0.3 % drops 1 drp LEFT EYE Q4H 7 Days Qty: 5 0RF No Action oxycodone-acetaminophen [Percocet] 10-325 mg Tablet 1 tablet PO Q4H PreserVision AREDS-2 250-90-40-1 mg Capsule 1 tablet PO BID oxycodone 15 mg tablet lisinopril 20 mg tablet 20 mg PO DAILY Qty: 90 3RF venlafaxine [Effexor XR] 150 mg capsule,extended release 24hr 150 mg PO DAILY Qty: 90 3RF simvastatin [Zocor] 20 mg tablet 20 mg PO DAILY Qty: 90 3RF pantoprazole [Protonix] 40 mg tablet,delayed release (DR/EC) 40 mg PO QAM Qty: 90 2RF alprazolam [Xanax] 0.25 mg tablet 0.25 mg PO BID PRN (Reason: anxiety) Qty: 30 0RF Follow-up/Referrals: Loc Weaver DO [Primary Care Provider] - Time of Disposition: 11:43 Quality NIHSS Nursing Documentation ED NIHSS nursing documentation: reviewed/agree
[2024-09-24 11:30] VITALS: BP 134/86; PULSE 97; RESP 19; TEMP 36.2; O2SAT 100
[2024-09-24] MEDS: FLUORESCEIN SOD 1 MG/STRIP LEFT EYE (11:39)
[2024-09-24] MEDS: TETRACAINE HCL 0.5% OPHTH SOLN 4 ML BTL LEFT EYE (11:39)
[2024-09-24] MEDS: DACRIOSE EYE IRRIGATION 118 ML BOTTLE LEFT EYE (11:40)
== END 2024-09-24 11:50 | disposition home or self-care (01) ==
PROVIDERS: Emergency Provider Nurse Practitioner Family; PCP Internal Medicine
DX: H10.32 Unspecified acute conjunctivitis, left eye (principal); F17.210 Nicotine dependence, cigarettes, uncomplicated; Z79.891 Long term (current) use of opiate analgesic
CPT/HCPCS: 99213; A9270; G0463